=== PATIENT | female | born 1960 ===

== ENCOUNTER 2020-05-08 10:36 | Outpatient (CLI) | payer MEDICAID ==
[~2020-05-08] VITALS: Ht 157.5 cm; Wt 69.4 kg
[2020-05-08 11:02] VITALS: BP 143/81
[2020-05-08] MEDS ORDERED: SIMVASTATIN10 MG ORAL (13:21)
[2020-05-08] MEDS ORDERED: HALOPERIDOL0.5 MG ORAL (13:21)
[2020-05-08] MEDS ORDERED: AMLODIPINE BESYL5 MG ORAL (13:21)
[2020-05-08] MEDS ORDERED: LISINOPRIL20 MG ORAL (13:21)
--- NOTE | 2020-05-09 17:45 | Consultation ---
DATE OF CONSULTATION: 05/08/2020 CONSULTING PHYSICIAN: Maurilio Freeman MD REASON FOR REFERRAL: Referral for abdominal pain. HISTORY OF PRESENT ILLNESS: This is a 60-year-old female with complaint of abdominal pain, chronic GERD, chronic constipation complained of nausea and bloating. No prior history of endoscopy. No prior history of colonoscopy. PAST MEDICAL HISTORY: 1. Hypertension. 2. Hypercholesteremia. 3. GERD. 4. Cough. 5. Questionable history of peptic ulcer disease 12 years ago, but no endoscopy was done. PAST SURGICAL HISTORY: None. MEDICATIONS: Please see medication reconciliation list. FAMILY HISTORY: No family history of GI malignancies. SOCIAL HISTORY: Patient denies any alcohol. She uses 6 cigarettes per day. Denies any IV drug abuse. ALLERGIES: To penicillin. REVIEW OF SYSTEMS: Positive for abdominal pain, chronic GERD, chronic constipation, nausea, and bloating. PHYSICAL EXAMINATION: VITAL SIGNS: Temperature 97.7, pulse was 78, respirations 20, blood pressure is 168/81. Height is 5 feet 2 inches, weight is 163. HEENT: Normocephalic, atraumatic. Sclerae anicteric. NECK: Supple. No evidence of obvious lymphadenopathy. CARDIOVASCULAR: Regular rate and rhythm. Plus S1 and S2. LUNGS: Clear to auscultation bilaterally. ABDOMEN: Positive bowel sounds. Soft and nontender. No rebound. No guarding. No peritoneal sign. EXTREMITIES: No cyanosis, no clubbing, no edema. ASSESSMENT AND PLAN: This 60-year-old female was referred to us for above signs and symptoms. Patient at this time refusing endoscopy and colonoscopy. I offered her colonoscopy given she is 52 and never had one endoscopy given chronic GERD and prior history of ulcer disease, but she is refusing. Currently, she is taking pantoprazole. We will recommend continue on that until the endoscopy is done. Meanwhile, we will put the patient on MiraLAX to help her with constipation. Patient was also to take Align probiotics for symptoms of bloating. Patient to come back in the office in 3 months for followup. Maurilio Freeman M.D. DR: ERASMO JOB#: [id number] CC:
== END 2020-05-08 12:36 | disposition home or self-care (01) ==
LOC: PAN 10:36
DX: R10.9 Unspecified abdominal pain (principal); K21.9 Gastro-esophageal reflux disease without esophagitis; K59.09 Other constipation; R11.0 Nausea; R14.0 Abdominal distension (gaseous); I10 Essential (primary) hypertension; E78.00 Pure hypercholesterolemia, unspecified; F17.210 Nicotine dependence, cigarettes, uncomplicated; Z88.0 Allergy status to penicillin
CPT/HCPCS: G0463